=== PATIENT | female | born 1965 | race Caucasian/White ===

== ENCOUNTER 2017-01-22 14:53 | Emergency (ER) | payer OTHER ==
[2017-01-22 15:01] VITALS: RESP 18; TEMP 98.2
[2017-01-22] MEDS ORDERED: OXYCODONE/APAP 5/325 TAB PO ONE (15:23)
[2017-01-22] MEDS ORDERED: TDAP ADULT 0.5 ML INJ (BOOSTRIX) IM ONE (15:26)
[2017-01-22] MEDS ORDERED: SKIN ADHESIVE (DERMABOND) 1 EACH TP ONE (15:28)
--- NOTE | 2017-01-22 15:34 | EDPHY ---
H & P Stated Complaint: Slipped on step of truck;injury to L jaw;no LOC;able to open mouth HPI/ROS: CHIEF COMPLAINT: Fall, mandible pain, laceration HISTORY OF PRESENT ILLNESS: Patient reports she was on the back of for work truck when she slipped on wet surface. She said she fell, striking her mandible left side of her neck. No midline tenderness of the neck. No loss of conscious. No headache. She complains of severe left mandibular pain, laceration on the left side of the chin and left-sided neck pain. Worse with any palpation movement. No improving factors. No chest pain. No back pain. No abdominal pain or injury. No injury to the arms or legs. She was ambulatory at the scene but scared and severe pain , thus she obtained a right here from bystander. Uncertain when her last tetanus shot was. 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 No other associated complaints or modifying factors REVIEW OF SYSTEMS: Ten systems reviewed and are negative unless otherwise noted in the HPI PAST MEDICAL HISTORY: Denies any medical history SOCIAL HISTORY: Nonsmoker. No alcohol use. 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 No Amezcua sign. No raccoon eyes. Eyes: Pupils equal and round, no conjunctival pallor or injection. EOMs intact. No nystagmus ENT, Mouth: Mucous membranes moist. No trismus. Airway widely patent Neck: Normal inspection, supple. No midline tenderness. No crepitus, step- off or deformity. Soft tissue tenderness to the left trapezius Respiratory: Lungs are clear to auscultation. No wheezing or rhonchi or crackles Cardiovascular: Regular rate and rhythm. No murmur. Pulses intact distally Gastrointestinal: Abdomen is soft and nontender Back: non-tender, no bony abnormalities Neurological: GCS 15. A&O, nonfocal, normal gait. Strength symmetric in all 4 limbs Skin: Warm and dry, no rash. 1 cm laceration below the left mandible. Wound is well approximated with no distraction of the borders. No foreign body. No bleeding. Extremities: Nontender, no pedal edema. Range of motion is symmetric in all 4 extremities Psychiatric: Mood and affect normal DIFFERENTIAL DIAGNOSES: Including but not limited to closed head injury, mandibular fracture, contusion , laceration, muscular strain, cervical fracture MDM: 3:25 p.m. Fall from the back of a truck with mandibular pain, submandibular laceration and left-sided neck pain. She is neurovascular intact. She is very nervous about her fall but is in no acute distress. Tetanus will need to be updated. Irrigate the wound and this will be closed with Dermabond. Imaging has been ordered. 3:55 p[address]. [address] by radiologist Dr[address] Gimenez. CT scans of the facial bones cervical spine reveal no acute findings. 4:15 p.m. Submandibular chin laceration with minimal contusion and soft tissue strain of the left neck. Negative CT scans of the facial bones cervical spine. I have closed the laceration with Dermabond skin adhesive without complication. Tolerated well. Wound care discussed. Follow up with her worker's compensation [facility] for definitive care. ED precautions discussed PROCEDURE: Laceration repair Consent: Verbal Location: Left submandibular trauma Length of repair: 1 cm Complexity: Simple Layer involvement: Single Anesthesia: None Irrigation: Extensive with sterile saline Debridement: None Procedure description: Following good anesthesia, the wound was copiously irrigated. Wound bed was explored and there is no foreign body noted. Wound borders were approximated well with good hemostasis. Tolerated well without complication. Suture/Staple material: Dermabond skin adhesive Wound care: Routine as discussed. No topical lotions or petroleum products applied of any kind SUPERVISION: This patient was independently evaluated without direct examination by the attending physician. Case was discussed with attending physician. Source: Patient - Personal History LMP (Females 10-55): 8-14 Days Ago Current Tetanus Diphtheria and Acellular Pertussis (TDAP): Yes - Medical/Surgical History Other PMH: neg - Social History Smoking Status: Never smoked Constitutional: Initial Vital Signs Temperature (C) 98.2 F 01/22/17 14:55 Heart Rate 91 01/22/17 14:55 Respiratory Rate 18 01/22/17 14:55 Blood Pressure 145/96 H 01/22/17 14:55 O2 Sat (%) 100 01/22/17 14:55 O2 Delivery Mode Room Air Allergies/Adverse Reactions: No Known Allergies Allergy (Unverified 01/22/17 15:26) Home Medications: Medication Instructions Recorded NK [No Known Home Meds] 01/22/17 Medical Decision Making - Diagnostics Imaging Results: Imaging Impressions Cervical Spine CT 01/22/17 15:23 Impression: 1. No acute fracture or soft tissue swelling. 2. Moderate degenerative disk disease at C5-C6 and C6-C7 contributing to central canal stenosis and bilateral neural foraminal stenosis at C5-C6. 3. If the patient has persistent pain or neurologic deficits, consider cervical spine MRI. Findings discussed with Emergency Department physician promotions assistant sales marketingLeonardo on 01/22/[address] 01/22/17 15:23 Impression: Negative. No acute mandibular fracture. Findings discussed with Emergency Department physician promotions assistant sales marketingLeonardo on 01/22/2017 at 1555 hours. - Data Points Medications Given: Discontinued Medications Diphtheria/Tetanus/Acell Pertussis (Boostrix) 0.5 ml IM .ONCE ONE Stop: 01/22/17 15:27 Last Admin: 01/22/17 15:41 Dose: 0.5 ml Departure - Departure Disposition: Home, Routine, Self-Care Clinical Impression: Laceration Closed head injury Qualifiers: Encounter type: initial encounter Qualified Code(s): S09.90XA - Unspecified injury of head, initial encounter Contusion of mandibular joint area Qualifiers: Encounter type: initial encounter Qualified Code(s): S00.83XA - Contusion of other part of head, initial encounter Condition: Good Instructions: Cervical Strain (ED), Head Injury (ED), Skin Adhesive Care (ED) Additional Instructions: 1. [id number] anti-inflammatories as discussed as needed 2. Wound care as discussed for laceration 3. Follow up with worker's compensation Clinic for definitive care 4. ER precautions as discussed Referrals: NONE *PRIMARY CARE P,. [Primary Care Provider] - As per Instructions Parish Carnes [place] [place] - As per Instructions Stand Alone Forms: Work Comp Follow Up
[2017-01-22 16:29] VITALS: BP 127/84; PULSE 78; O2SAT 96
== END 2017-01-22 16:25 | disposition home or self-care (01) ==
PROC: 0HQ1XZZ Repair Face Skin, External Approach (ICD-10-PCS; principal; 2017-01-22)
DX: S01.81XA Laceration without foreign body of other part of head, initial encounter (principal); S09.90XA Unspecified injury of head, initial encounter; Z23 Encounter for immunization; W01.198A Fall on same level from slipping, tripping and stumbling with subsequent striking against other object, initial encounter; Y92.69 Other specified industrial and construction area as the place of occurrence of the external cause; Y99.0 Civilian activity done for income or pay; Y93.89 Activity, other specified